=== PATIENT | male | born 1990 | race Caucasian/White ===

== ENCOUNTER 2020-04-13 15:23 | Observation (INO) | payer OTHER ==
[~2020-04-13] VITALS: Ht 182.9 cm; Wt 93.0 kg
[2020-04-13 15:39] LABS: RED BLOOD COUNT 5.15 M/UL (4.20-5.50)
[2020-04-13 16:02] LABS: BUN/CREATININE RATIO 13 (0-10)
[2020-04-13] MEDS ORDERED: PERCOCET 10-321 EACH PO (16:40)
[2020-04-14] MEDS ORDERED: IBUPROFEN800 MG PO (08:16)
[2020-04-14] MEDS ORDERED: TRAMADOL HCL100 MG PO (10:58)
== END 2020-04-14 10:41 | disposition home or self-care (01) ==
LOC: ER1 15:23 → M/S 16:21 → CDU 16:21 → M/S 21:16
PROVIDERS: Emergency Medicine; ADMIT Surgery
DX: S52.322A Displaced transverse fracture of shaft of left radius, initial encounter for closed fracture (principal); S52.222A Displaced transverse fracture of shaft of left ulna, initial encounter for closed fracture; Z20.822 Contact with and (suspected) exposure to COVID-19; W17.89XA Other fall from one level to another, initial encounter; Y99.0 Civilian activity done for income or pay
CPT/HCPCS: 36415; 71045; 73080; 73090; 73100; 76000; 80053; 83605; 85025; 85610; 85730; 86850; 86900; 86901; 87635; 96374; 96376; 99284; C1713; G0378; G0480; J0690; J1100; J1170; J2001; J2250; J2270; J2405; J2704; J2710; J2795; J3010; J7120

== ENCOUNTER 2020-10-31 10:50 | Emergency (ER) | payer BC, OTHER ==
[~2020-10-31] VITALS: Ht 182.9 cm; Wt 93.0 kg
[~2020-10-31 10:50] MED LIST: IBUPROFEN800 MG PO; PERCOCET 10-321 EACH PO; TRAMADOL HCL100 MG PO
[2020-10-31] MEDS ORDERED: MUCINEX1200 MG PO (12:32)
== END 2020-10-31 13:15 | disposition home or self-care (01) ==
LOC: ER1 10:50
DX: Z23 Encounter for immunization (principal); U07.1 COVID-19; J02.9 Acute pharyngitis, unspecified; E66.9 Obesity, unspecified
CPT/HCPCS: 87081; 87880; 99284; M0243

== ENCOUNTER 2021-06-30 17:36 | Emergency (ER) | payer OTHER ==
[~2021-06-30 17:36] MED LIST changes: +MUCINEX1200 MG PO
== END 2021-06-30 23:45 | disposition home or self-care (01) ==
LOC: ER1 17:36
DX: S01.81XA Laceration without foreign body of other part of head, initial encounter (principal); Z23 Encounter for immunization; W22.8XXA Striking against or struck by other objects, initial encounter; Y92.410 Unspecified street and highway as the place of occurrence of the external cause
CPT/HCPCS: 12011; 90471; 90715; 99282